=== PATIENT | female | born 1935 ===

== ENCOUNTER 2021-12-23 11:11 | Inpatient (IN) | payer OTHER ==
[~2021-12-23] VITALS: Ht 157.5 cm; Wt 72.6 kg
[2021-12-23] MEDS ORDERED: KEPPRA XR500 MG PO (11:26)
[2021-12-23] MEDS ORDERED: HORIZANT300 MG PO (11:26)
[2021-12-23] MEDS ORDERED: CARVEDILOL12.5 M1 PO (11:27)
== END 2021-12-26 21:03 | disposition home or self-care (01) | DRG 641 ==
LOC: ER 11:11 → MEDI 19:39 → SEC-K 19:39 → MEDI 23:49
PROVIDERS: ADMIT Internal Medicine; ATTEND Internal Medicine
DX: E86.0 Dehydration (principal); E87.1 Hypo-osmolality and hyponatremia; E87.6 Hypokalemia; I10 Essential (primary) hypertension; G30.8 Other Alzheimer's disease; F02.80 Dementia in other diseases classified elsewhere, unspecified severity, without behavioral disturbance, psychotic disturbance, mood disturbance, and anxiety; E03.8 Other specified hypothyroidism; I11.0 Hypertensive heart disease with heart failure; I50.9 Heart failure, unspecified; Z74.01 Bed confinement status; Z20.822 Contact with and (suspected) exposure to COVID-19